=== PATIENT | female | born 1990 | race Two or more races ===

== ENCOUNTER 2020-03-26 11:58 | Inpatient (IN) | payer SELFPAY ==
[~2020-03-26] VITALS: Ht 160 cm; Wt 64.9 kg
[2020-03-26] MEDS ORDERED: BUTORPHANOL 2 MG/ML VIAL. IVP PRN ×2 (12:45)
[2020-03-26] MEDS ORDERED: LIDOCAINE 1% PF 30 ML VIAL. INJ PRN (12:45)
[2020-03-26] MEDS ORDERED: fentaNYL PF VIAL 100 MCG/2 ML VIAL IVP PRN ×2 (12:45)
[2020-03-26] MEDS ORDERED: IBUPROFEN 400 MG TABLET. PO PRN (12:45)
[2020-03-26] MEDS ORDERED: ONDANSETRON PF 4 MG/2 ML VIAL. IVP PRN (12:45)
[2020-03-26] MEDS ORDERED: TERBUTALINE 1 MG/ML VIAL. SQ PRN (12:45)
[2020-03-26] MEDS ORDERED: 0.9 % SODIUM CHLORIDE 10 ML DISP.SYRIN. IV PRN ×2 (12:45→15:15)
[2020-03-26] MEDS ORDERED: OXYTOCIN 30 UNIT/500 ML PREMIX 500 ML IV PRN ×2 (12:45→15:15)
[2020-03-26] MEDS ORDERED: CITRIC ACID/SODIUM CITRATE 30 ML SOLUTION. PO PRN (12:45)
[2020-03-26 13:01] LABS: BILIRUBIN,URINE NEGATIVE (NEG); CLARITY,URINE CLEAR; COLOR,URINE YELLOW; NITRITE,URINE NEGATIVE (NEG); PROTEIN,URINE NEGATIVE (NEG-TRACE); UROBILINOGEN,URINE 0.2 mg/dL (0.2 mg/dL)
[2020-03-26 13:13] VITALS: BP 137/76
[2020-03-26] MEDS ORDERED: PNV1TABL25 PO (13:15)
[2020-03-26 13:16] LABS: BACTERIA,URINE FEW /HPF (0-FEW); RBC,URINE 0 /HPF (0-2); SQUAMOUS EPITHELIAL CELL,UR MANY /LPF; WBC,URINE 20-40 /HPF (0-4)
[2020-03-26] MEDS ORDERED: ASCO100T4 PO (13:16)
[2020-03-26] MEDS: IV RINGERS,LACTATED 1000ML 1,000 ML IV SCH ×2 (13:17→14:38)
[2020-03-26 13:19] LABS: BASO % 0 % (0-3); EOS % 0 % (0-3); HEMATOCRIT 41.1 % (36.0-47.0); HEMOGLOBIN 14.3 g/dL (12.0-15.5); LYMPH # 1.5 x10^3/uL (1.0-4.8); LYMPH % 16 % (24-48); MEAN CORPUSCULAR HEMOGLOBIN 30 pg (25-35); MEAN CORPUSCULAR HGB CONC 35 g/dL (31-37); MEAN CORPUSCULAR VOLUME 87 fL (79-100); MONO # 0.7 x10^3/uL (0.0-1.1); MONO % 7 % (0-9); NEUT # 7.2 x10^3/uL (1.8-7.7); NEUT % 76 % (31-73); PLATELET COUNT 243 x10^3/uL (140-400); RED BLOOD COUNT 4.72 x10^6/uL (3.50-5.40); RED CELL DISTRIBUTION WIDTH 13.8 % (11.5-14.5); WHITE BLOOD COUNT 9.4 x10^3/uL (4.0-11.0)
[2020-03-26] MEDS ORDERED: ROPIVacaine 0.2% PF 10 ML VIAL. ONE ×2 (13:40→14:00)
[2020-03-26] MEDS ORDERED: L&D EPIDURAL SYRINGE 50 ML ONE (13:40)
[2020-03-26] MEDS ORDERED: L&D EPIDURAL 50 ML SYRINGE. ONE (14:00)
--- NOTE | 2020-03-26 14:39 | PDOC1 ---
OB - History Hx of Present Care: Good Care Ultrasounds: Normal mid trimester US Obstetrical Complications: None Medical Complications: None Past Family/Social History * Past Medical, Surgical, Family and Obstetric Histories reviewed from chart. Rubella: Immune RPR/VDRL: Negative GBS Status: Negative HBsAG: Negative OB - Chief Complaint & HPI Date of Admission: Date of Admission: Mar 26, 2020 at 11:58 Chief Complaint/History : 3 Para: 2 EGA: 38 Reason for admission: active labor (h/o and desires repeat ) Admission Nurse Assessment Rev: Yes OB - Admission Exam Physical Exam Vitals: VS - Last 72 Hours, by Label Date Time Temp Pulse Resp B/P (MAP) Pulse Ox O2 Delivery O2 Flow Rate FiO2 03/26/20 13:13 98.8 62 20 137/76 (96) Room Air 98.8 HEENT: Normal Heart: Regular Rate Lungs: Clear Abdomen: Gravid, Non tender, Soft Extremities: Edema Reflexes: Normal Cervical Dilatation: 5cm Effacement: 75% Station: -3 Membranes: Intact Accelerations: Accelerations Present Decelerations: No decelerations Contractions on Admission: < 5 Minutes Apart Intensity: Moderate Text A: 38 wks IUP H/o previous c/s H/o P: Admit labor management. ROEBR DIEZ Jr, MD Mar 26, 2020 14:39
--- NOTE | 2020-03-26 15:13 | PDOC ---
VAGINAL DELIVERY DATE DATE: 03/26/20 TIME: 15:12 : 3 Para: 3 EGA: 37 VAGINAL DELIVERY: VTX VACCUM ASSISTED: No PLACENTA: Spontaneous 8/9 SEX: Male WEIGHT Weight [ pending ] Nuchal Cord: No Amniotic Fluid: Clear PAIN: Epidural EPISIOTOMY: No EXTENSION: Yes (2nd degree midline laceration) REPAIRED WITH 2-0 vicryl EBL 300 ml COMPLICATIONS none CONDITION pt. stable Signs of Intrauterine Infectio: None Shoulder Dystocia: No ROBER DIEZ Jr, MD Mar 26, 2020 15:13
[2020-03-26] MEDS ORDERED: diphenhydrAMINE HCL 25 MG CAPSULE PO PRN (15:15)
[2020-03-26] MEDS ORDERED: SIMETHICONE 80 MG TAB.CHEW PO PRN (15:15)
[2020-03-26] MEDS ORDERED: oxyCODONE/APAP 5/325 1 TAB TABLET PO PRN (15:15)
[2020-03-26] MEDS ORDERED: BENZOCAINE 20% TOPICAL AEROSOL SPRAY 57GM CAN. TP PRN (15:15)
[2020-03-26] MEDS ORDERED: HYDROCORTISONE 1% TOPICAL OINTMENT 30GM TUBE. TP PRN (15:15)
[2020-03-26] MEDS ORDERED: ZOLPIDEM 5 MG TABLET. PO PRN (15:15)
[2020-03-26] MEDS ORDERED: ACETAMINOPHEN 325 MG TABLET. PO PRN (15:15)
[2020-03-26] MEDS ORDERED: PHENYLEPH/MINERAL OIL/PETROLAT RECTAL OINTMENT TUBE. RC PRN (15:15)
[2020-03-26] MEDS ORDERED: DOCUSATE SODIUM 100 MG CAPSULE. PO PRN (15:15)
[2020-03-26] MEDS ORDERED: MAG HYDROX/ALUMINUM HYD/SIMETH 30 ML ORAL.SUSP PO PRN (15:15)
[2020-03-26] MEDS ORDERED: MMR per PROTOCOL. MC PRN (15:15)
[2020-03-26] MEDS ORDERED: MAGNESIUM HYDROXIDE 2,400 MG/30 ML ORAL.SUSP. PO PRN (15:15)
[2020-03-26] MEDS ORDERED: TDaP (Adacel) per PROTOCOL. MC PRN (15:15)
[2020-03-26 20:30] VITALS: BP 111/58
[2020-03-26 21:30] VITALS: BP 106/66
[2020-03-27 00:10] VITALS: BP 96/50
[2020-03-27] MEDS: IBUPROFEN 400 MG TABLET. PO PRN ×2 (00:11→08:10)
[2020-03-27 04:15] VITALS: BP 102/60
[2020-03-27 07:09] LABS: BASO % 0 % (0-3); EOS % 0 % (0-3); HEMOGLOBIN 12.4 g/dL (12.0-15.5); LYMPH # 1.6 x10^3/uL (1.0-4.8); LYMPH % 12 % (24-48); MEAN CORPUSCULAR HEMOGLOBIN 29 pg (25-35); MEAN CORPUSCULAR HGB CONC 34 g/dL (31-37); MEAN CORPUSCULAR VOLUME 88 fL (79-100); MONO % 7 % (0-9); NEUT # 11.6 x10^3/uL (1.8-7.7); NEUT % 81 % (31-73); PLATELET COUNT 220 x10^3/uL (140-400); RED BLOOD COUNT 4.22 x10^6/uL (3.50-5.40); RED CELL DISTRIBUTION WIDTH 14.1 % (11.5-14.5); WHITE BLOOD COUNT 14.3 x10^3/uL (4.0-11.0)
[2020-03-27] MEDS ORDERED: FERROUS SULFATE 325 MG TABLET. PO SCH (08:00)
[2020-03-27] MEDS ORDERED: MULTIVITAMIN with MINERAL TABLET. PO SCH (09:00)
[2020-03-27 12:40] VITALS: BP 102/49
--- NOTE | 2020-03-27 14:40 | PDOC3 ---
OB DISCHARGE SUMMARY DATE OF ADMISSION: 03/26/20 DATE OF DISCHARGE: 03/27/20 REASON FOR ADMISSION: Onset of labor INTRAPARTUM PROCEDURES: Spontanous Vag Deliv () DISCHARGE DIAGNOSIS: Term Delivered DISCHARGE INFORMATION: Activity (ad nate), Diet (regular), Instructions (pelvic rest x 6 wks) HOSPITAL COURSE Term gestation delivered without complications. ROBER DIEZ Jr, MD Mar 27, 2020 14:40
[2020-03-27] MEDS ORDERED: IBUP-1027 PO (14:41)
--- NOTE | 2020-03-27 14:41 | DISCH ---
DISCHARGE INSTRUCTIONS Condition on Discharge Condition on Discharge: Stable Activity After Discharge Activity Instructions for Disc: Activity as tolerated Lifting Instructions after Dis: No heavy lifting Driving Instructions after Dis: Do not drive today Diet after Discharge Diet after Discharge: Regular Contacting the DRDanette after DC Call your doctor for: Concerns you may have Follow-Up Follow up with: Germán in 6 wks ROBER DIEZ Jr, MD Mar 27, 2020 14:41
[2020-03-27 17:20] VITALS: BP 115/76
--- NOTE | 2020-03-27 17:20 | NUR ---
Discharge instructions given to pt. Pt verbalizes understanding, denies questions. Pt discharged home with infant and spouse.
== END 2020-03-27 17:35 | disposition home or self-care (01) | DRG 807 ==
LOC: OBSVTOIN 11:58 → 3 SO LND 11:58 → 3 NORTH 20:49
PROVIDERS: ADMIT Obstetrics & Gynecology; ATTEND Obstetrics & Gynecology
PROC: 10E0XZZ Delivery of Products of Conception, External Approach (ICD-10-PCS; principal; 2020-03-26)
PROC: 0KQM0ZZ Repair Perineum Muscle, Open Approach (ICD-10-PCS; 2020-03-26)
PROC: 3E0R3BZ Introduction of Anesthetic Agent into Spinal Canal, Percutaneous Approach (ICD-10-PCS; 2020-03-26)
PROC: 00HU33Z Insertion of Infusion Device into Spinal Canal, Percutaneous Approach (ICD-10-PCS; 2020-03-26)
DX: O34.219 Maternal care for unspecified type scar from previous cesarean delivery (principal); Z37.0 Single live birth; O70.1 Second degree perineal laceration during delivery; Z3A.37 37 weeks gestation of pregnancy; Z20.828 Contact with and (suspected) exposure to other viral communicable diseases
CPT/HCPCS: 36415; 81001; 85025; 86592; 86850; 86900; 86901; 87086; J2590; J2795; J3010; J7120; U0003; G0378